=== PATIENT | female | born 1965 ===

== ENCOUNTER 2018-10-08 12:05 | Emergency (ER) | payer OTHER ==
[~2018-10-08] VITALS: Ht 165.1 cm; Wt 59.9 kg
[2018-10-08] MEDS ORDERED: ROBITUSSIN COU237 M1 (12:25)
== END 2018-10-08 16:34 | disposition left against medical advice (07) ==
LOC: ER 12:05
DX: J40 Bronchitis, not specified as acute or chronic (principal)